=== PATIENT | male | born 1945 | race Caucasian/White ===

== ENCOUNTER 2017-07-03 16:06 | Observation (INO) | payer OTHER ==
[~2017-07-03] VITALS: Ht 185.4 cm; Wt 80.1 kg
[2017-07-03 18:16] LABS: BASOPHIL (%) 0.2 % (0-1); EOSINOPHIL (%) 2.2 % (0-5); EOSINOPHIL COUNT 0.2 K/uL (0-0.3); HEMATOCRIT 44.4 % (38.0-50.0); HEMOGLOBIN 15.3 G/DL (12.5-16.6); IMMATURE GRANULOCYTE (%) 0.4 % (0.0-0.7); LYMPHOCYTE (%) 17.8 % (15-42); LYMPHOCYTE COUNT 1.6 K/uL (1.0-2.8); MCHC 34.5 G/DL (30.0-36.0); MCV 87.1 FL (86-99); MONOCYTE (%) 8.4 % (3-12); MONOCYTE COUNT 0.8 K/uL (0-0.8); NEUTROPHIL COUNT 6.4 K/uL (1.8-6.4); PLATELET COUNT 170 K/uL (156-360); RBC DIS.WIDTH-CV 13.1 % (11.8-14.6); RBC DIS.WIDTH-SD 41.6 % (39-53); WHITE BLOOD COUNT 9.1 K/uL (4.1-10.2)
[2017-07-03 18:29] LABS: ALBUMIN 3.6 g/dL (3.2-4.8)
[2017-07-03 18:30] LABS: CHLORIDE 103 mEq/L (99-109); POTASSIUM 3.9 mEq/L (3.7-5.4); SODIUM 137 mEq/L (136-147)
[2017-07-03 18:32] LABS: GLUCOSE 98 mg/dL (70-99); TOTAL PROTEIN 6.6 g/dL (6.4-8.3)
[2017-07-03 18:34] LABS: TOTAL BILIRUBIN 0.4 mg/dL (0.0-1.0)
[2017-07-03 18:35] LABS: ALKALINE PHOSPHATASE 55 IU/L (3-129)
[2017-07-03 18:36] LABS: GFR ESTIMATE (CALCULATED) > 59 mL/min/ (58.99-99999)
[2017-07-03 18:37] LABS: AST (GOT) 16 IU/L (2-34); TROP-I INTERPRETATION NEGATIVE; TROPONIN-I < 0.01 ng/mL (0.0-0.30); UREA NITROGEN (BUN) 19 mg/dL (9-23)
[2017-07-03 18:38] LABS: ALT (GPT) 16 IU/L (3-49)
[2017-07-03 19:39] LABS: APPEARANCE CLEAR ((CLEAR)); BILIRUBIN NEGATIVE; BLOOD NEGATIVE; COLOR YELLOW ((YELLOW)); GLUCOSE (STRIP) NEGATIVE; KETONES NEGATIVE; LEUKOCYTES NEGATIVE; NITRITE NEGATIVE; PROTEIN (STRIP) NEGATIVE; SPECIFIC GRAVITY 1.015 (1.000-1.030); UCUL ADDED? NO; UROBILINOGEN 0.2 MG/DL (0.2-1.0)
[2017-07-03] MEDS ORDERED: RITALIN10 MG PO (20:45)
[2017-07-03] MEDS ORDERED: PROZAC40 MG PO (20:45)
[2017-07-03] MEDS ORDERED: MYSOLINE50 MG PO (20:47)
[2017-07-03] MEDS ORDERED: LIPITOR40 MG PO (20:47)
[2017-07-03] MEDS ORDERED: LO-DOSE ASPIRIN81 M1 PO (20:47)
[2017-07-03] MEDS ORDERED: FISH OIL 1,0001 EA11 PO (20:48)
[2017-07-03] MEDS ORDERED: ONE DAILY1 EAC3 PO (20:48)
[2017-07-03] MEDS ORDERED: CALCIUM 500 +1 EAC2 PO (20:49)
[2017-07-04 00:05] LABS: HDL CHOLESTEROL 42 MG/DL (Desirable>=40); LDL CHOLESTEROL 71 mg/dL (Desirable<100); NON-HDL CHOLESTEROL 89 mg/dL (Desirable<160); TOTAL CHOLESTEROL 131 mg/dL (Desirable<200); TRIGLYCERIDES 90 MG/DL (Normal: <150)
[2017-07-04 00:31] VITALS: BP 119/66
[2017-07-04 03:36] VITALS: BP 93/58
[2017-07-04 08:56] VITALS: BP 121/67
[2017-07-04 10:38] LABS: HEMOGLOBIN A1c (GLYCOHEMOGLOB) 5.2 % (Below 5.7)
[2017-07-04] MEDS ORDERED: ANTIVERT25 MG PO (16:07)
== END 2017-07-04 17:17 | disposition home health service (06) ==
LOC: EME 16:06 → 5SOUTH 22:49 → EDOF 22:49 → 5SOUTH 22:49 → ENRESERV 22:50 → 5SOUTH 07-04 00:13
PROVIDERS: Emergency Medicine; Hospitalist
DX: H81.10 Benign paroxysmal vertigo, unspecified ear (principal); I65.23 Occlusion and stenosis of bilateral carotid arteries; J01.90 Acute sinusitis, unspecified; I25.10 Atherosclerotic heart disease of native coronary artery without angina pectoris; Z95.5 Presence of coronary angioplasty implant and graft; E78.5 Hyperlipidemia, unspecified; F03.90 Unspecified dementia, unspecified severity, without behavioral disturbance, psychotic disturbance, mood disturbance, and anxiety; I45.10 Unspecified right bundle-branch block
CPT/HCPCS: 70450; 70551; 71046; 80053; 80061; 81003; 83036; 83880; 84484; 85025; 93005; 93880; 99281; 99285; G0378; J1644